=== PATIENT | female | born 1975 | race Caucasian/White ===

== ENCOUNTER → 2020-06-15 08:09 | Outpatient (CLI) | payer BC, SELFPAY ==
--- NOTE | ~2020-06-15 | CT_ITS ---
EXAMINATION: CT abdomen pelvis wo con EXAM DATE: 06/15/2020 08:30 INDICATION: Kidney stone, calculus of kidney TECHNIQUE: Spiral CT of the abdomen and pelvis was performed without contrast. Axial, coronal and sag ittal images were reviewed. The dose-length product (DLP) for this examination was 703.86 mGy-cm. T he exposure was tailored according to patient size (auto mA exposure control), and iterative reconstr uction (ASIR) was used as additional dose reduction technique. There is no prior study for compariso n. 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 Left renal hypodensity measuring 1.5 cm consistent with cyst. There is a more focal punctate right inferior calyceal stone. Uterus is antev erted with the Essure tubal closure devices. The bladder is unremarkable. The liver, spleen, adrena l glands and pancreas are unremarkable. Gallbladder is unremarkable. No biliary obstruction. There is no retroperitoneal or pelvic lymphadenopathy. There are no findings to suggest appendicitis. The stomach and small bowel are unremarkable. There is expected amount of colonic stool. No free intraperitoneal gas. The heart is normal in size. T here are no pericardial or pleural effusions. The lung bases are unremarkable. The bones are unrema rkable. IMPRESSION: Medullary nephrocalcinosis. Punctate left nephrolithiasis. No hydronephrosis. Reviewed, dictated and finalized at location A. IMPRESSION: Medullary nephrocalcinosis. Punctate left nephrolithiasis. No hydro nephrosis.
== END ==
PROVIDERS: PCP Physician Assistant; Visit Provider Physician Assistant
DX: N20.0 Calculus of kidney (principal)
CPT/HCPCS: 74176